=== PATIENT | male | born 1995 | race Two or more races ===

== ENCOUNTER 2017-06-20 08:40 | Emergency (ER) | payer OTHER, MEDICAID ==
[~2017-06-20] VITALS: Ht 167.6 cm; Wt 68.0 kg
[2017-06-20] MEDS ORDERED: ALPR0.25 PO (08:43)
--- NOTE | 2017-06-20 08:44 | NUR ---
bib ra c/o anxiety attack. Pt. stating he felt flushed, nervous, legs cramping. Patient a/ox 4. breathing even and unlabored at this time. Vitals stable. Safety and comfort measures in place. Awaiting md orders
--- NOTE | 2017-06-20 08:58 | NUR ---
Patient discharged to home in stable condition. Prescription given to patient. Written and verbal after care instructions given. Patient verbalizes understanding of instruction.
[2017-06-20 08:59] VITALS: BP 127/64
== END 2017-06-20 09:00 | disposition home or self-care (01) ==
LOC: ER 08:41
DX: F41.1 Generalized anxiety disorder (principal); F45.8 Other somatoform disorders
CPT/HCPCS: 99284; A4606; Z7610